=== PATIENT | male | born 1950 | race Caucasian/White ===

== ENCOUNTER → 2023-07-22 14:53 | Outpatient (REF) | payer MEDICARE, BC, SELFPAY | LOC: DHCBC HW 14:53 | PROVIDERS: ATTENDING PHYSICIAN Internal Medicine Cardiovascular Disease; FAMILY PHYSICIAN Internal Medicine | DX: I65.23 Occlusion and stenosis of bilateral carotid arteries (principal); I73.9 Peripheral vascular disease, unspecified; R06.02 Shortness of breath | CPT/HCPCS: 93306 ==

== ENCOUNTER → 2025-01-25 12:38 | Outpatient (REF) | payer MEDICARE, BC, SELFPAY | LOC: RAD 12:38 | PROVIDERS: ATTENDING PHYSICIAN Surgery Vascular Surgery; FAMILY PHYSICIAN Internal Medicine | DX: I73.9 Peripheral vascular disease, unspecified (principal); I65.23 Occlusion and stenosis of bilateral carotid arteries | CPT/HCPCS: 93880; 93922; 93925; 93978 ==

== ENCOUNTER → 2025-04-03 13:33 | Outpatient (REF) | payer MEDICARE, BC, SELFPAY | LOC: RCS 13:33 | PROVIDERS: ATTENDING PHYSICIAN Nurse Practitioner Gerontology; FAMILY PHYSICIAN Internal Medicine | DX: R06.02 Shortness of breath (principal); I25.10 Atherosclerotic heart disease of native coronary artery without angina pectoris | CPT/HCPCS: 93306 ==